=== PATIENT | female | born 1930 | race Caucasian/White ===

== ENCOUNTER 2017-05-17 14:55 | Inpatient (IN) | payer MEDICARE, OTHER ==
[2017-05-17] MEDS: morphine 4 MG/ML VIAL IV (16:05)
[2017-05-17] MEDS: ONDANSETRON 4 MG INJ IV (16:06)
[2017-05-17 16:08] LABS: ADD MAN DIFF? NO
[2017-05-17 16:12] LABS: WHITE BLOOD COUNT 8.8 10^3/ul (4.8-10.8)
[2017-05-17 16:12] LABS: BASOPHIL # 0.1 10^3/ul (0.0-0.1); BASOPHILS % 0.6 % (0.0-2.0); EOSINOPHILS # 0.1 10^3/ul (0.0-0.5); EOSINOPHILS % 0.7 % (0.0-7.0); HEMATOCRIT 42.5 % (37.0-47.0); HEMOGLOBIN 14.9 g/dl (12.0-16.0); LYMPHOCYTES # 1.1 10^3/ul (0.8-2.9); MEAN CORPUSCULAR HEMOGLOBIN 31.6 pg (29.0-33.0); MEAN CORPUSCULAR HGB CONC 35.1 g/dl (32.0-37.0); MEAN CORPUSCULAR VOLUME 90.2 fl (82.0-101.0); MEAN PLATELET VOLUME 9.7 fl (7.4-10.4); MONOCYTE # 0.8 10^3/ul (0.3-0.9); MONOCYTES % 9.1 % (0.0-11.0); NEUTROPHIL # 6.7 10^3/ul (1.6-7.5); NEUTROPHILS % 76.4 % (39.0-77.0); PLATELET COUNT 176 10^3/UL (140-415); RED BLOOD COUNT 4.71 10^6/ul (4.20-5.40); RED CELL DISTRIBUTION WIDTH 12.5 % (11.5-14.5)
[2017-05-17 16:33] LABS: ALANINE AMINOTRANSFERASE 26 IU/L (13-69); ALBUMIN 4.3 g/dl (3.3-4.9); ALBUMIN/GLOBULIN RATIO 1.43; ALKALINE PHOSPHATASE 68 IU/L (42-121); ANION GAP 17 (8-16); ASPARTATE AMINO TRANSFERASE 43 IU/L (15-46); BILIRUBIN,INDIRECT 1.1 mg/dl (0-1.1); BILIRUBIN,TOTAL 1.1 mg/dl (0.2-1.3); BLOOD UREA NITROGEN 29 mg/dl (7-20); CARBON DIOXIDE 22 mmol/L (21-31); CHLORIDE 108 mmol/L (97-110); CREATININE 0.88 mg/dl (0.44-1.00); GLUCOSE 88 mg/dl (70-220); SODIUM 143 mmol/L (135-144); TOTAL PROTEIN 7.3 g/dl (6.1-8.1)
[2017-05-17] MEDS: SOD CHLORIDE 0.9% 500 ML IV (17:32)
[2017-05-17 17:55] LABS: ADD UMIC YES; UR ASCORBIC ACID NEGATIVE (NEGATIVE); UR BILIRUBIN (Dip) NEGATIVE (NEGATIVE); UR BLOOD (Dip) NEGATIVE (NEGATIVE); UR CLARITY CLEAR (CLEAR); UR COLOR YELLOW (YELLOW); UR GLUCOSE (Dip) NEGATIVE (NEGATIVE); UR KETONES (Dip) TRACE mg/dL (NEGATIVE); UR LEUKOCYTE ESTERASE (Dip) TRACE Leu/ul (NEGATIVE); UR NITRITE (Dip) NEGATIVE (NEGATIVE); UR RBC 1 /HPF (0-5); UR SPECIFIC GRAVITY (Dip) 1.015 (1.003-1.030); UR TOTAL PROTEIN (Dip) NEGATIVE (NEGATIVE); UR UROBILINOGEN (Dip) NEGATIVE (NEGATIVE); UR WBC 3 /HPF (0-5)
[2017-05-17] MEDS ORDERED: ONDANSETRON 4 MG INJ IV ×2 (18:00→23:00)
[2017-05-17] MEDS ORDERED: ACETAMINOPHEN 325 MG TAB PO (18:00)
[2017-05-17] MEDS ORDERED: morphine 2 MG INJ IV (23:00)
[2017-05-18] MEDS: PANTOPRAZOLE (EC) 40 MG TAB PO (05:26)
[2017-05-18] MEDS: LIDOCAINE 5% PATCH TD (11:07)
[2017-05-19] MEDS: PANTOPRAZOLE (EC) 40 MG TAB PO (05:50)
[2017-05-19] MEDS: LIDOCAINE 5% PATCH TD (08:48)
[2017-05-19] MEDS: VALSARTAN 80 MG TAB PO ×3 (08:48→20:34)
[2017-05-19] MEDS: HYDROCHLOROTHIAZIDE 25 MG TAB PO ×2 (08:49→09:14)
[2017-05-19] MEDS: AMLODIPINE 10 MG TAB GTB ×2 (08:49→09:00)
[2017-05-19] MEDS: CHOLECALCIFEROL 2,000 UNIT CAP PO (12:45)
[2017-05-19] MEDS: NEBIVOLOL 5 MG TAB PO (20:34)
[2017-05-19] MEDS: NIFEdipine (XL) 30 MG TAB PO (20:35)
[2017-05-20] MEDS: PANTOPRAZOLE (EC) 40 MG TAB PO (05:37)
[2017-05-20] MEDS: CHOLECALCIFEROL 2,000 UNIT CAP PO (08:44)
[2017-05-20] MEDS: HYDROCHLOROTHIAZIDE 25 MG TAB PO (08:45)
[2017-05-20] MEDS: LIDOCAINE 5% PATCH TD (08:45)
[2017-05-20] MEDS: VALSARTAN 80 MG TAB PO ×2 (08:45→21:15)
[2017-05-20 17:25] LABS: INR 1.01; PROTIME 13.4 Sec (11.9-14.9)
[2017-05-20 17:26] LABS: PARTIAL THROMBOPLASTIN TIME 29.9 Sec (25.0-35.0)
[2017-05-20] MEDS: NIFEdipine (XL) 30 MG TAB PO (21:00)
[2017-05-20] MEDS: NEBIVOLOL 5 MG TAB PO (21:16)
[2017-05-21 06:02] LABS: ADD MAN DIFF? NO
[2017-05-21 06:13] LABS: BASOPHILS % 0.4 % (0.0-2.0); EOSINOPHILS # 0.4 10^3/ul (0.0-0.5); EOSINOPHILS % 5.4 % (0.0-7.0); HEMATOCRIT 37.6 % (37.0-47.0); HEMOGLOBIN 12.9 g/dl (12.0-16.0); LYMPHOCYTES # 1.8 10^3/ul (0.8-2.9); LYMPHOCYTES % 24.9 % (15.0-51.0); MEAN CORPUSCULAR HEMOGLOBIN 31.4 pg (29.0-33.0); MEAN CORPUSCULAR HGB CONC 34.3 g/dl (32.0-37.0); MEAN CORPUSCULAR VOLUME 91.5 fl (82.0-101.0); MEAN PLATELET VOLUME 9.5 fl (7.4-10.4); MONOCYTE # 0.8 10^3/ul (0.3-0.9); MONOCYTES % 10.2 % (0.0-11.0); NEUTROPHIL # 4.3 10^3/ul (1.6-7.5); NEUTROPHILS % 58.6 % (39.0-77.0); PLATELET COUNT 192 10^3/UL (140-415); RED BLOOD COUNT 4.11 10^6/ul (4.20-5.40); RED CELL DISTRIBUTION WIDTH 12.4 % (11.5-14.5)
[2017-05-21 06:13] LABS: WHITE BLOOD COUNT 7.4 10^3/ul (4.8-10.8)
[2017-05-21] MEDS: PANTOPRAZOLE (EC) 40 MG TAB PO (06:25)
[2017-05-21 06:47] LABS: ALANINE AMINOTRANSFERASE 21 IU/L (13-69); ALBUMIN 3.7 g/dl (3.3-4.9); ALBUMIN/GLOBULIN RATIO 1.42; ALKALINE PHOSPHATASE 62 IU/L (42-121); ANION GAP 15 (8-16); ASPARTATE AMINO TRANSFERASE 17 IU/L (15-46); BILIRUBIN,INDIRECT 0.2 mg/dl (0-1.1); BILIRUBIN,TOTAL 0.2 mg/dl (0.2-1.3); BLOOD UREA NITROGEN 28 mg/dl (7-20); CALCIUM 9.6 mg/dl (8.4-10.2); CARBON DIOXIDE 28 mmol/L (21-31); CHLORIDE 106 mmol/L (97-110); GLUCOSE 97 mg/dl (70-220); SODIUM 145 mmol/L (135-144); TOTAL PROTEIN 6.3 g/dl (6.1-8.1)
[2017-05-21 06:54] LABS: IRON 50 ug/dl (35-150)
[2017-05-21 07:03] LABS: % IRON SATURATION 18 % SAT (22-52); TOTAL IRON BINDING CAPACITY 274 ug/dl (241-421)
[2017-05-21] MEDS: CHOLECALCIFEROL 2,000 UNIT CAP PO (08:28)
[2017-05-21] MEDS: VALSARTAN 80 MG TAB PO ×2 (08:29→21:07)
[2017-05-21] MEDS: LIDOCAINE 5% PATCH TD (08:29)
[2017-05-21] MEDS: HYDROCHLOROTHIAZIDE 25 MG TAB PO (08:29)
[2017-05-21] MEDS: NEOMYC/POLYMYX/BACIT 30 GM OINT TOP ×2 (16:33→23:15)
[2017-05-21] MEDS: NEBIVOLOL 5 MG TAB PO (21:08)
[2017-05-22] MEDS: PANTOPRAZOLE (EC) 40 MG TAB PO (06:16)
[2017-05-22] MEDS: HYDROCHLOROTHIAZIDE 25 MG TAB PO (08:39)
[2017-05-22] MEDS: NEBIVOLOL 5 MG TAB PO (08:39)
[2017-05-22] MEDS: NEOMYC/POLYMYX/BACIT 30 GM OINT TOP (08:39)
[2017-05-22] MEDS: LIDOCAINE 5% PATCH TD (08:39)
[2017-05-22] MEDS: VALSARTAN 80 MG TAB PO (08:40)
[2017-05-22] MEDS: CHOLECALCIFEROL 2,000 UNIT CAP PO (08:40)
== END 2017-05-22 15:39 | DRG 543 ==
LOC: E/R 14:55 → PP2 17:53
DX: M80.88XA Other osteoporosis with current pathological fracture, vertebra(e), initial encounter for fracture (principal); I50.30 Unspecified diastolic (congestive) heart failure; J90 Pleural effusion, not elsewhere classified; I11.0 Hypertensive heart disease with heart failure; D63.8 Anemia in other chronic diseases classified elsewhere; K59.00 Constipation, unspecified; Z85.89 Personal history of malignant neoplasm of other organs and systems; M47.896 Other spondylosis, lumbar region
CPT/HCPCS: 72131; 72157; 72158; 76604; 80053; 81001; 82728; 83540; 83735; 85025; 85610; 85730; 96374; 96375; 97162; 99285-25

== ENCOUNTER 2017-05-22 16:25 | Inpatient (IN) | payer MEDICARE, OTHER ==
[2017-05-22] MEDS ORDERED: morphine 2 MG INJ IV (20:25)
[2017-05-22] MEDS ORDERED: ONDANSETRON 4 MG INJ IV (20:25)
[2017-05-22 21:22] LABS: ADD UMIC YES; UR ASCORBIC ACID NEGATIVE (NEGATIVE); UR BILIRUBIN (Dip) NEGATIVE (NEGATIVE); UR BLOOD (Dip) NEGATIVE (NEGATIVE); UR CLARITY CLEAR (CLEAR); UR COLOR YELLOW (YELLOW); UR GLUCOSE (Dip) NEGATIVE (NEGATIVE); UR KETONES (Dip) NEGATIVE (NEGATIVE); UR LEUKOCYTE ESTERASE (Dip) 1+ Leu/ul (NEGATIVE); UR MUCUS FEW /HPF (NONE SEEN); UR NITRITE (Dip) NEGATIVE (NEGATIVE); UR RBC 0 /HPF (0-5); UR SPECIFIC GRAVITY (Dip) 1.016 (1.003-1.030); UR SQUAMOUS EPITHELIAL CELL FEW /HPF (FEW); UR TOTAL PROTEIN (Dip) NEGATIVE (NEGATIVE); UR UROBILINOGEN (Dip) NEGATIVE (NEGATIVE); UR WBC 12 /HPF (0-5)
[2017-05-22] MEDS: NEBIVOLOL 5 MG TAB PO (22:13)
[2017-05-22] MEDS: VALSARTAN 80 MG TAB PO (22:13)
[2017-05-22] MEDS: NEOMYC/POLYMYX/BACIT 30 GM OINT TOP (22:14)
[2017-05-23] MEDS ORDERED: BISACODYL 10 MG SUPP PR (00:30)
[2017-05-23] MEDS ORDERED: MAGNESIUM HYDROXIDE 30ML CUP PO (00:30)
[2017-05-23] MEDS ORDERED: LACTULOSE 30ML CUP PO (00:30)
[2017-05-23] MEDS: PANTOPRAZOLE (EC) 40 MG TAB PO (06:47)
[2017-05-23 07:51] LABS: ADD MAN DIFF? NO
[2017-05-23 07:56] LABS: BASOPHIL # 0.1 10^3/ul (0.0-0.1); BASOPHILS % 0.8 % (0.0-2.0); EOSINOPHILS # 0.4 10^3/ul (0.0-0.5); EOSINOPHILS % 4.6 % (0.0-7.0); HEMATOCRIT 39.9 % (37.0-47.0); HEMOGLOBIN 13.7 g/dl (12.0-16.0); LYMPHOCYTES % 24.2 % (15.0-51.0); MEAN CORPUSCULAR HEMOGLOBIN 31.1 pg (29.0-33.0); MEAN CORPUSCULAR HGB CONC 34.3 g/dl (32.0-37.0); MEAN CORPUSCULAR VOLUME 90.7 fl (82.0-101.0); MONOCYTE # 0.7 10^3/ul (0.3-0.9); MONOCYTES % 8.5 % (0.0-11.0); NEUTROPHIL # 5.1 10^3/ul (1.6-7.5); NEUTROPHILS % 61.7 % (39.0-77.0); PLATELET COUNT 208 10^3/UL (140-415); RED CELL DISTRIBUTION WIDTH 12.4 % (11.5-14.5)
[2017-05-23 07:56] LABS: WHITE BLOOD COUNT 8.3 10^3/ul (4.8-10.8)
[2017-05-23 08:18] LABS: ALANINE AMINOTRANSFERASE 22 IU/L (13-69); ALBUMIN 3.6 g/dl (3.3-4.9); ALKALINE PHOSPHATASE 73 IU/L (42-121); ANION GAP 17 (8-16); ASPARTATE AMINO TRANSFERASE 19 IU/L (15-46); BILIRUBIN,INDIRECT 0.3 mg/dl (0-1.1); BILIRUBIN,TOTAL 0.3 mg/dl (0.2-1.3); BLOOD UREA NITROGEN 36 mg/dl (7-20); CALCIUM 10.9 mg/dl (8.4-10.2); CARBON DIOXIDE 27 mmol/L (21-31); CHLORIDE 106 mmol/L (97-110); CREATININE 1.14 mg/dl (0.44-1.00); GLUCOSE 94 mg/dl (70-220); POTASSIUM 4.1 mmol/L (3.5-5.1); SODIUM 146 mmol/L (135-144); TOTAL PROTEIN 6.6 g/dl (6.1-8.1)
[2017-05-23] MEDS: DOCUSATE SODIUM 100 MG CAP PO ×2 (08:47→20:21)
[2017-05-23] MEDS: CHOLECALCIFEROL 2,000 UNIT CAP PO (08:47)
[2017-05-23] MEDS: NEBIVOLOL 5 MG TAB PO ×2 (08:47→20:21)
[2017-05-23] MEDS: LIDOCAINE 5% PATCH TD (08:48)
[2017-05-23] MEDS: HYDROCHLOROTHIAZIDE 25 MG TAB PO (08:48)
[2017-05-23] MEDS: VALSARTAN 80 MG TAB PO ×2 (08:48→20:21)
[2017-05-23] MEDS: ACETAMINOPHEN 325 MG TAB PO (08:50)
[2017-05-23] MEDS: NEOMYC/POLYMYX/BACIT 30 GM OINT TOP ×2 (09:00→20:21)
[2017-05-23] MEDS: SENNA TAB PO (20:21)
[2017-05-24] MEDS: PANTOPRAZOLE (EC) 40 MG TAB PO (06:30)
[2017-05-24] MEDS: DOCUSATE SODIUM 100 MG CAP PO ×2 (09:54→21:00)
[2017-05-24] MEDS: LIDOCAINE 5% PATCH TD (09:54)
[2017-05-24] MEDS: NEBIVOLOL 5 MG TAB PO ×2 (09:54→21:00)
[2017-05-24] MEDS: CHOLECALCIFEROL 2,000 UNIT CAP PO (10:00)
[2017-05-24] MEDS: VALSARTAN 80 MG TAB PO ×2 (10:00→21:00)
[2017-05-24] MEDS: HYDROCHLOROTHIAZIDE 25 MG TAB PO (10:00)
[2017-05-24] MEDS: NEOMYC/POLYMYX/BACIT 30 GM OINT TOP ×2 (10:00→21:11)
[2017-05-24] MEDS: ACETAMINOPHEN 325 MG TAB PO (18:46)
[2017-05-24] MEDS: SENNA TAB PO (21:00)
[2017-05-25] MEDS: PANTOPRAZOLE (EC) 40 MG TAB PO (06:26)
[2017-05-25] MEDS: CHOLECALCIFEROL 2,000 UNIT CAP PO (08:32)
[2017-05-25] MEDS: HYDROCHLOROTHIAZIDE 25 MG TAB PO (08:33)
[2017-05-25] MEDS: VALSARTAN 80 MG TAB PO ×2 (08:34→20:06)
[2017-05-25] MEDS: DOCUSATE SODIUM 100 MG CAP PO ×2 (08:34→20:06)
[2017-05-25] MEDS: NEBIVOLOL 5 MG TAB PO ×2 (08:35→20:07)
[2017-05-25] MEDS: LIDOCAINE 5% PATCH TD (08:37)
[2017-05-25] MEDS: NEOMYC/POLYMYX/BACIT 30 GM OINT TOP ×2 (08:39→20:07)
[2017-05-25] MEDS: SENNA TAB PO (20:13)
[2017-05-26] MEDS: PANTOPRAZOLE (EC) 40 MG TAB PO (06:32)
[2017-05-26] MEDS: DOCUSATE SODIUM 100 MG CAP PO ×2 (08:08→21:10)
[2017-05-26] MEDS: NEBIVOLOL 5 MG TAB PO ×2 (08:08→21:11)
[2017-05-26] MEDS: HYDROCHLOROTHIAZIDE 25 MG TAB PO (08:10)
[2017-05-26] MEDS: CHOLECALCIFEROL 2,000 UNIT CAP PO (08:10)
[2017-05-26] MEDS: LIDOCAINE 5% PATCH TD (08:14)
[2017-05-26] MEDS: NEOMYC/POLYMYX/BACIT 30 GM OINT TOP ×2 (08:14→21:00)
[2017-05-26] MEDS: VALSARTAN 80 MG TAB PO ×2 (09:34→21:10)
[2017-05-26] MEDS: SENNA TAB PO (21:10)
[2017-05-27] MEDS: PANTOPRAZOLE (EC) 40 MG TAB PO (06:13)
[2017-05-27] MEDS: HYDROCHLOROTHIAZIDE 25 MG TAB PO (09:12)
[2017-05-27] MEDS: CHOLECALCIFEROL 2,000 UNIT CAP PO (09:13)
[2017-05-27] MEDS: DOCUSATE SODIUM 100 MG CAP PO ×2 (09:13→20:04)
[2017-05-27] MEDS: VALSARTAN 80 MG TAB PO ×2 (09:13→20:04)
[2017-05-27] MEDS: NEBIVOLOL 5 MG TAB PO ×2 (09:13→20:05)
[2017-05-27] MEDS: NEOMYC/POLYMYX/BACIT 30 GM OINT TOP ×2 (09:19→20:05)
[2017-05-27] MEDS: LIDOCAINE 5% PATCH TD (09:19)
[2017-05-27] MEDS: SENNA TAB PO (20:03)
[2017-05-28] MEDS: PANTOPRAZOLE (EC) 40 MG TAB PO (06:28)
[2017-05-28 07:39] LABS: ADD MAN DIFF? NO
[2017-05-28 07:42] LABS: BASOPHIL # 0.1 10^3/ul (0.0-0.1); BASOPHILS % 0.9 % (0.0-2.0); EOSINOPHILS # 0.3 10^3/ul (0.0-0.5); EOSINOPHILS % 4.6 % (0.0-7.0); HEMATOCRIT 37.8 % (37.0-47.0); HEMOGLOBIN 12.8 g/dl (12.0-16.0); LYMPHOCYTES # 1.8 10^3/ul (0.8-2.9); LYMPHOCYTES % 25.6 % (15.0-51.0); MEAN CORPUSCULAR HEMOGLOBIN 30.9 pg (29.0-33.0); MEAN CORPUSCULAR HGB CONC 33.9 g/dl (32.0-37.0); MEAN CORPUSCULAR VOLUME 91.3 fl (82.0-101.0); MEAN PLATELET VOLUME 10.2 fl (7.4-10.4); MONOCYTE # 0.7 10^3/ul (0.3-0.9); MONOCYTES % 10.7 % (0.0-11.0); NEUTROPHILS % 57.9 % (39.0-77.0); PLATELET COUNT 181 10^3/UL (140-415); RED BLOOD COUNT 4.14 10^6/ul (4.20-5.40); RED CELL DISTRIBUTION WIDTH 12.2 % (11.5-14.5)
[2017-05-28 07:42] LABS: WHITE BLOOD COUNT 6.9 10^3/ul (4.8-10.8)
[2017-05-28 08:12] LABS: ALANINE AMINOTRANSFERASE 23 IU/L (13-69); ALBUMIN 3.8 g/dl (3.3-4.9); ALBUMIN/GLOBULIN RATIO 1.46; ALKALINE PHOSPHATASE 72 IU/L (42-121); ANION GAP 14 (8-16); ASPARTATE AMINO TRANSFERASE 18 IU/L (15-46); BILIRUBIN,INDIRECT 0.2 mg/dl (0-1.1); BILIRUBIN,TOTAL 0.2 mg/dl (0.2-1.3); BLOOD UREA NITROGEN 43 mg/dl (7-20); CALCIUM 9.9 mg/dl (8.4-10.2); CARBON DIOXIDE 30 mmol/L (21-31); CHLORIDE 105 mmol/L (97-110); CREATININE 1.31 mg/dl (0.44-1.00); GLUCOSE 90 mg/dl (70-220); POTASSIUM 4.1 mmol/L (3.5-5.1); SODIUM 145 mmol/L (135-144); TOTAL PROTEIN 6.4 g/dl (6.1-8.1)
[2017-05-28] MEDS: DOCUSATE SODIUM 100 MG CAP PO ×2 (08:39→21:27)
[2017-05-28] MEDS: NEBIVOLOL 5 MG TAB PO ×2 (08:39→21:27)
[2017-05-28] MEDS: HYDROCHLOROTHIAZIDE 25 MG TAB PO (08:40)
[2017-05-28] MEDS: CHOLECALCIFEROL 2,000 UNIT CAP PO (08:40)
[2017-05-28] MEDS: NEOMYC/POLYMYX/BACIT 30 GM OINT TOP ×2 (08:42→21:28)
[2017-05-28] MEDS: LIDOCAINE 5% PATCH TD (08:42)
[2017-05-28] MEDS: VALSARTAN 80 MG TAB PO ×2 (08:45→21:27)
[2017-05-28 14:19] LABS: IRON 83 ug/dl (35-150)
[2017-05-28 14:28] LABS: % IRON SATURATION 28 % SAT (22-52); TOTAL IRON BINDING CAPACITY 293 ug/dl (241-421)
[2017-05-28] MEDS: SENNA TAB PO (21:27)
[2017-05-29 06:33] LABS: ADD MAN DIFF? NO
[2017-05-29 06:42] LABS: WHITE BLOOD COUNT 6.5 10^3/ul (4.8-10.8)
[2017-05-29 06:42] LABS: BASOPHILS % 0.5 % (0.0-2.0); EOSINOPHILS # 0.3 10^3/ul (0.0-0.5); EOSINOPHILS % 5.3 % (0.0-7.0); HEMOGLOBIN 12.6 g/dl (12.0-16.0); MEAN CORPUSCULAR HEMOGLOBIN 31.1 pg (29.0-33.0); MEAN CORPUSCULAR HGB CONC 34.1 g/dl (32.0-37.0); MEAN CORPUSCULAR VOLUME 91.4 fl (82.0-101.0); MEAN PLATELET VOLUME 10.3 fl (7.4-10.4); MONOCYTE # 0.6 10^3/ul (0.3-0.9); MONOCYTES % 9.8 % (0.0-11.0); NEUTROPHIL # 3.4 10^3/ul (1.6-7.5); NEUTROPHILS % 53.1 % (39.0-77.0); PLATELET COUNT 178 10^3/UL (140-415); RED BLOOD COUNT 4.05 10^6/ul (4.20-5.40); RED CELL DISTRIBUTION WIDTH 12.1 % (11.5-14.5)
[2017-05-29] MEDS: PANTOPRAZOLE (EC) 40 MG TAB PO (06:42)
[2017-05-29 06:58] LABS: ALANINE AMINOTRANSFERASE 21 IU/L (13-69); ALBUMIN 3.7 g/dl (3.3-4.9); ALBUMIN/GLOBULIN RATIO 1.37; ALKALINE PHOSPHATASE 74 IU/L (42-121); ANION GAP 13 (8-16); ASPARTATE AMINO TRANSFERASE 18 IU/L (15-46); BILIRUBIN,INDIRECT 0.1 mg/dl (0-1.1); BILIRUBIN,TOTAL 0.1 mg/dl (0.2-1.3); BLOOD UREA NITROGEN 45 mg/dl (7-20); CARBON DIOXIDE 30 mmol/L (21-31); CHLORIDE 106 mmol/L (97-110); CREATININE 1.27 mg/dl (0.44-1.00); GLUCOSE 92 mg/dl (70-220); MAGNESIUM 1.9 mg/dl (1.7-2.5); SODIUM 145 mmol/L (135-144); TOTAL PROTEIN 6.4 g/dl (6.1-8.1)
[2017-05-29] MEDS: CHOLECALCIFEROL 2,000 UNIT CAP PO (09:00)
[2017-05-29] MEDS: DOCUSATE SODIUM 100 MG CAP PO ×2 (09:00→21:18)
[2017-05-29] MEDS: VALSARTAN 80 MG TAB PO ×2 (09:01→21:00)
[2017-05-29] MEDS: NEBIVOLOL 5 MG TAB PO ×3 (09:02→21:19)
[2017-05-29] MEDS: HYDROCHLOROTHIAZIDE 25 MG TAB PO (09:02)
[2017-05-29] MEDS: NEOMYC/POLYMYX/BACIT 30 GM OINT TOP ×2 (09:03→21:19)
[2017-05-29] MEDS: LIDOCAINE 5% PATCH TD (09:03)
[2017-05-29] MEDS: ERGOCALCIFEROL 50,000 UNIT CAP PO (17:52)
[2017-05-29] MEDS: SENNA TAB PO (21:00)
[2017-05-30] MEDS: PANTOPRAZOLE (EC) 40 MG TAB PO (06:00)
[2017-05-30] MEDS: NEOMYC/POLYMYX/BACIT 30 GM OINT TOP ×2 (09:00→21:00)
[2017-05-30] MEDS: CHOLECALCIFEROL 2,000 UNIT CAP PO (09:00)
[2017-05-30] MEDS: LIDOCAINE 5% PATCH TD (09:11)
[2017-05-30] MEDS: VALSARTAN 80 MG TAB PO ×2 (09:11→21:00)
[2017-05-30] MEDS: NEBIVOLOL 5 MG TAB PO ×2 (09:12→21:34)
[2017-05-30] MEDS: DOCUSATE SODIUM 100 MG CAP PO ×2 (09:12→21:00)
[2017-05-30] MEDS: HYDROCHLOROTHIAZIDE 25 MG TAB PO (09:12)
[2017-05-30] MEDS: SENNA TAB PO (21:00)
[2017-05-31] MEDS: PANTOPRAZOLE (EC) 40 MG TAB PO (06:31)
[2017-05-31] MEDS: NEBIVOLOL 5 MG TAB PO ×2 (09:57→21:46)
[2017-05-31] MEDS: DOCUSATE SODIUM 100 MG CAP PO ×2 (09:57→21:47)
[2017-05-31] MEDS: HYDROCHLOROTHIAZIDE 25 MG TAB PO (09:58)
[2017-05-31] MEDS: VALSARTAN 80 MG TAB PO ×2 (09:58→21:00)
[2017-05-31] MEDS: CHOLECALCIFEROL 2,000 UNIT CAP PO (09:58)
[2017-05-31] MEDS: LIDOCAINE 5% PATCH TD (10:09)
[2017-05-31] MEDS: NEOMYC/POLYMYX/BACIT 30 GM OINT TOP (21:00)
[2017-05-31] MEDS: SENNA TAB PO (21:47)
[2017-06-01] MEDS: PANTOPRAZOLE (EC) 40 MG TAB PO (06:00)
[2017-06-01] MEDS: CHOLECALCIFEROL 2,000 UNIT CAP PO (08:59)
[2017-06-01] MEDS: LIDOCAINE 5% PATCH TD (08:59)
[2017-06-01] MEDS: DOCUSATE SODIUM 100 MG CAP PO ×2 (08:59→20:34)
[2017-06-01] MEDS: HYDROCHLOROTHIAZIDE 25 MG TAB PO (09:00)
[2017-06-01] MEDS: NEBIVOLOL 5 MG TAB PO ×2 (09:00→20:36)
[2017-06-01] MEDS: NEOMYC/POLYMYX/BACIT 30 GM OINT TOP ×2 (09:00→20:36)
[2017-06-01] MEDS: VALSARTAN 80 MG TAB PO ×3 (09:00→20:39)
[2017-06-01] MEDS: SENNA TAB PO (20:34)
[2017-06-02] MEDS: PANTOPRAZOLE (EC) 40 MG TAB PO (06:00)
[2017-06-02] MEDS: DOCUSATE SODIUM 100 MG CAP PO ×2 (08:44→21:00)
[2017-06-02] MEDS: NEBIVOLOL 5 MG TAB PO ×2 (08:44→21:03)
[2017-06-02] MEDS: VALSARTAN 80 MG TAB PO ×2 (08:44→21:00)
[2017-06-02] MEDS: LIDOCAINE 5% PATCH TD (08:45)
[2017-06-02] MEDS: CHOLECALCIFEROL 2,000 UNIT CAP PO (08:45)
[2017-06-02] MEDS: HYDROCHLOROTHIAZIDE 25 MG TAB PO (08:45)
[2017-06-02] MEDS: NEOMYC/POLYMYX/BACIT 30 GM OINT TOP ×2 (08:46→21:07)
[2017-06-02] MEDS: SENNA TAB PO (21:00)
[2017-06-03] MEDS: PANTOPRAZOLE (EC) 40 MG TAB PO (06:04)
[2017-06-03] MEDS: DOCUSATE SODIUM 100 MG CAP PO ×2 (09:29→20:06)
[2017-06-03] MEDS: NEBIVOLOL 5 MG TAB PO ×2 (09:29→20:08)
[2017-06-03] MEDS: HYDROCHLOROTHIAZIDE 25 MG TAB PO (09:29)
[2017-06-03] MEDS: CHOLECALCIFEROL 2,000 UNIT CAP PO (09:29)
[2017-06-03] MEDS: VALSARTAN 80 MG TAB PO ×2 (09:30→20:08)
[2017-06-03] MEDS: LIDOCAINE 5% PATCH TD (09:30)
[2017-06-03] MEDS: NEOMYC/POLYMYX/BACIT 30 GM OINT TOP ×2 (09:30→20:10)
[2017-06-03] MEDS: SENNA TAB PO (20:06)
[2017-06-04] MEDS: PANTOPRAZOLE (EC) 40 MG TAB PO (06:38)
[2017-06-04] MEDS: LIDOCAINE 5% PATCH TD (08:42)
[2017-06-04] MEDS: CHOLECALCIFEROL 2,000 UNIT CAP PO (08:42)
[2017-06-04] MEDS: NEOMYC/POLYMYX/BACIT 30 GM OINT TOP (08:42)
[2017-06-04] MEDS: HYDROCHLOROTHIAZIDE 25 MG TAB PO (08:42)
[2017-06-04] MEDS: DOCUSATE SODIUM 100 MG CAP PO (08:43)
[2017-06-04] MEDS: NEBIVOLOL 5 MG TAB PO (08:43)
[2017-06-04] MEDS: VALSARTAN 80 MG TAB PO (08:44)
[2017-06-04] MEDS: ZOLEDRONIC ACID 4 MG in SOD CHLORIDE 0.9% 100 ML IVPB (11:35)
== END 2017-06-04 16:30 | DRG 560 ==
LOC: VRC 05-29 16:34
PROC: F07Z5ZZ Bed Mobility Treatment (ICD-10-PCS; principal; 2017-05-23)
PROC: F07Z8ZZ Transfer Training Treatment (ICD-10-PCS; 2017-05-23)
PROC: F07Z9ZZ Gait Training/Functional Ambulation Treatment (ICD-10-PCS; 2017-05-23)
PROC: F08Z2ZZ Grooming/Personal Hygiene Treatment (ICD-10-PCS; 2017-05-23)
PROC: F08Z1ZZ Dressing Techniques Treatment (ICD-10-PCS; 2017-05-23)
PROC: F08Z0ZZ Bathing/Showering Techniques Treatment (ICD-10-PCS; 2017-05-23)
DX: S22.089D Unspecified fracture of T11-T12 vertebra, subsequent encounter for fracture with routine healing (principal); I11.0 Hypertensive heart disease with heart failure; I50.32 Chronic diastolic (congestive) heart failure; W19.XXXD Unspecified fall, subsequent encounter; K21.9 Gastro-esophageal reflux disease without esophagitis; I25.10 Atherosclerotic heart disease of native coronary artery without angina pectoris; I73.9 Peripheral vascular disease, unspecified; K59.00 Constipation, unspecified; R41.0 Disorientation, unspecified; D63.8 Anemia in other chronic diseases classified elsewhere; R52 Pain, unspecified; Z85.118 Personal history of other malignant neoplasm of bronchus and lung; Z74.09 Other reduced mobility; Z96.651 Presence of right artificial knee joint
CPT/HCPCS: 70450; 71110; 78306; 80053; 81001; 83540; 83735; 85025; 87081; 87086; 93306; 97110; 97112; 97116; 97150; 97163; 97167; 97530; 97535; A9503; J3487

== ENCOUNTER 2017-10-31 09:29 | Inpatient (IN) | payer MEDICARE, OTHER ==
[2017-10-31 10:29] LABS: ADD MAN DIFF? NO
[2017-10-31] MEDS ORDERED: ACETAMINOPHEN 325 MG TAB PO (10:30)
[2017-10-31] MEDS ORDERED: ONDANSETRON 4 MG INJ IV (10:30)
[2017-10-31 10:31] LABS: BASOPHILS % 0.5 % (0.0-2.0); EOSINOPHILS # 0.1 10^3/ul (0.0-0.5); EOSINOPHILS % 1.7 % (0.0-7.0); HEMATOCRIT 38.8 % (37.0-47.0); HEMOGLOBIN 13.3 g/dl (12.0-16.0); LYMPHOCYTES # 1.2 10^3/ul (0.8-2.9); LYMPHOCYTES % 18.8 % (15.0-51.0); MEAN CORPUSCULAR HEMOGLOBIN 30.7 pg (29.0-33.0); MEAN CORPUSCULAR HGB CONC 34.3 g/dl (32.0-37.0); MEAN CORPUSCULAR VOLUME 89.6 fl (82.0-101.0); MEAN PLATELET VOLUME 9.4 fl (7.4-10.4); MONOCYTE # 0.6 10^3/ul (0.3-0.9); MONOCYTES % 9.3 % (0.0-11.0); NEUTROPHIL # 4.5 10^3/ul (1.6-7.5); NEUTROPHILS % 69.4 % (39.0-77.0); PLATELET COUNT 184 10^3/UL (140-415); RED BLOOD COUNT 4.33 10^6/ul (4.20-5.40); RED CELL DISTRIBUTION WIDTH 13.6 % (11.5-14.5)
[2017-10-31 10:31] LABS: WHITE BLOOD COUNT 6.4 10^3/ul (4.8-10.8)
[2017-10-31 10:50] LABS: INR 1.08; PROTIME 14.1 Sec (11.9-14.9); PT RATIO 1.1
[2017-10-31 10:51] LABS: PARTIAL THROMBOPLASTIN TIME 27.4 Sec (25.0-35.0)
[2017-10-31 10:53] LABS: ANION GAP 10 (8-16); BLOOD UREA NITROGEN 15 mg/dl (7-20); CALCIUM 8.8 mg/dl (8.4-10.2); CARBON DIOXIDE 28 mmol/L (21-31); CHLORIDE 108 mmol/L (97-110); CREATININE 0.81 mg/dl (0.44-1.00); GLUCOSE 89 mg/dl (70-220); POTASSIUM 3.1 mmol/L (3.5-5.1); SODIUM 143 mmol/L (135-144)
[2017-10-31] MEDS: POTASSIUM CHLORIDE (SR) 20 MEQ TAB PO (11:06)
[2017-10-31] MEDS: SOD CHLORIDE 0.9% 1,000 ML IV (12:20)
[2017-10-31 16:34] LABS: IRON 56 ug/dl (35-150)
[2017-10-31 16:35] LABS: MAGNESIUM 1.8 mg/dl (1.7-2.5)
[2017-10-31 16:43] LABS: % IRON SATURATION 20 % SAT (22-52); TOTAL IRON BINDING CAPACITY 275 ug/dl (241-421)
[2017-11-01 05:40] LABS: ADD MAN DIFF? NO
[2017-11-01 05:45] LABS: WHITE BLOOD COUNT 7.7 10^3/ul (4.8-10.8)
[2017-11-01 05:45] LABS: BASOPHILS % 0.4 % (0.0-2.0); EOSINOPHILS # 0.1 10^3/ul (0.0-0.5); EOSINOPHILS % 1.6 % (0.0-7.0); HEMATOCRIT 36.9 % (37.0-47.0); HEMOGLOBIN 12.4 g/dl (12.0-16.0); LYMPHOCYTES # 1.7 10^3/ul (0.8-2.9); LYMPHOCYTES % 21.8 % (15.0-51.0); MEAN CORPUSCULAR HEMOGLOBIN 30.4 pg (29.0-33.0); MEAN CORPUSCULAR HGB CONC 33.6 g/dl (32.0-37.0); MEAN CORPUSCULAR VOLUME 90.4 fl (82.0-101.0); MONOCYTE # 0.8 10^3/ul (0.3-0.9); MONOCYTES % 9.9 % (0.0-11.0); NEUTROPHIL # 5.1 10^3/ul (1.6-7.5); NEUTROPHILS % 65.9 % (39.0-77.0); PLATELET COUNT 186 10^3/UL (140-415); RED BLOOD COUNT 4.08 10^6/ul (4.20-5.40); RED CELL DISTRIBUTION WIDTH 13.6 % (11.5-14.5)
[2017-11-01] MEDS: SOD CHLORIDE 0.9% 1,000 ML IV (06:08)
[2017-11-01 06:16] LABS: ANION GAP 12 (8-16); BLOOD UREA NITROGEN 16 mg/dl (7-20); CALCIUM 8.4 mg/dl (8.4-10.2); CARBON DIOXIDE 25 mmol/L (21-31); CHLORIDE 110 mmol/L (97-110); CREATININE 0.75 mg/dl (0.44-1.00); GLUCOSE 86 mg/dl (70-220); MAGNESIUM 1.9 mg/dl (1.7-2.5); POTASSIUM 3.2 mmol/L (3.5-5.1); SODIUM 144 mmol/L (135-144)
[2017-11-01] MEDS: POTASSIUM CHLORIDE (SR) 20 MEQ TAB PO ×2 (09:52→12:19)
[2017-11-01] MEDS: MAGNESIUM SULFATE 2 GM/50 ML 50 ML IVPB (09:52)
[2017-11-01] MEDS: CLONIDINE 0.2 MG/24 HR PATCH TRANSDERM (12:18)
[2017-11-01] MEDS: AMLODIPINE 5 MG TAB PO (12:18)
== END 2017-11-01 14:58 | disposition home health service (06) | DRG 187 ==
LOC: E/R 09:29 → 2NE 10:16
PROC: 0W9B3ZZ Drainage of Left Pleural Cavity, Percutaneous Approach (ICD-10-PCS; principal; 2017-10-31)
DX: J90 Pleural effusion, not elsewhere classified (principal); C34.90 Malignant neoplasm of unspecified part of unspecified bronchus or lung; E87.6 Hypokalemia; I10 Essential (primary) hypertension; I51.7 Cardiomegaly
CPT/HCPCS: 36415; 71045; 76604; 77012; 80048; 83540; 83735; 84443; 85025; 85610; 85730; 93005; 99285-25

== ENCOUNTER 2017-12-23 09:29 | Observation (INO) | payer MEDICARE, OTHER ==
[2017-12-23] MEDS: SOD CHLORIDE 0.9% 1,000 ML IV ×2 (10:33→13:30)
[2017-12-23] MEDS: ALBUTEROL 0.083% (NEB) 2.5 MG/3 ML AMP NEB (10:45)
[2017-12-23] MEDS: IPRATROPIUM (NEB) 0.5 MG/2.5 ML AMP NEB (10:45)
[2017-12-23 10:58] LABS: ADD MAN DIFF? NO
[2017-12-23] MEDS ORDERED: MECLIZINE 12.5 MG TAB PO (11:00)
[2017-12-23 11:05] LABS: BASOPHILS % 0.4 % (0.0-2.0); EOSINOPHILS # 0.1 10^3/ul (0.0-0.5); EOSINOPHILS % 0.8 % (0.0-7.0); HEMATOCRIT 41.1 % (37.0-47.0); LYMPHOCYTES # 1.5 10^3/ul (0.8-2.9); LYMPHOCYTES % 18.8 % (15.0-51.0); MEAN CORPUSCULAR HEMOGLOBIN 30.5 pg (29.0-33.0); MEAN CORPUSCULAR HGB CONC 34.1 g/dl (32.0-37.0); MEAN CORPUSCULAR VOLUME 89.5 fl (82.0-101.0); MEAN PLATELET VOLUME 10.2 fl (7.4-10.4); MONOCYTE # 0.6 10^3/ul (0.3-0.9); MONOCYTES % 7.8 % (0.0-11.0); NEUTROPHIL # 5.7 10^3/ul (1.6-7.5); NEUTROPHILS % 71.7 % (39.0-77.0); PLATELET COUNT 194 10^3/UL (140-415); RED BLOOD COUNT 4.59 10^6/ul (4.20-5.40); RED CELL DISTRIBUTION WIDTH 14.5 % (11.5-14.5)
[2017-12-23 11:21] LABS: ALANINE AMINOTRANSFERASE 29 IU/L (13-69); ALBUMIN 3.4 g/dl (3.3-4.9); ALBUMIN/GLOBULIN RATIO 1.36; ALKALINE PHOSPHATASE 88 IU/L (42-121); ANION GAP 8 (5-13); ASPARTATE AMINO TRANSFERASE 35 IU/L (15-46); BILIRUBIN,INDIRECT 0.6 mg/dl (0-1.1); BILIRUBIN,TOTAL 0.6 mg/dl (0.2-1.3); BLOOD UREA NITROGEN 23 mg/dl (7-20); CALCIUM 8.6 mg/dl (8.4-10.2); CARBON DIOXIDE 25 mmol/L (21-31); CHLORIDE 108 mmol/L (97-110); CREATININE 0.78 mg/dl (0.44-1.00); GLUCOSE 91 mg/dl (70-220); POTASSIUM 3.8 mmol/L (3.5-5.1); SODIUM 141 mmol/L (135-144); TOTAL PROTEIN 5.9 g/dl (6.1-8.1)
[2017-12-23 11:22] LABS: INR 1.11; PARTIAL THROMBOPLASTIN TIME 29.4 Sec (23.0-35.0); PROTIME 14.5 Sec (11.9-14.9); PT RATIO 1.1
[2017-12-23 11:32] LABS: B-TYPE NATRIURETIC PEPTIDE 610 PG/ML (0-450); TROPONIN-I < 0.012 ng/ml (0.000-0.120)
[2017-12-23] MEDS ORDERED: ONDANSETRON (ODT) 4 MG TAB ODT (11:38)
[2017-12-23] MEDS: ERGOCALCIFEROL 50,000 UNIT CAP PO (16:00)
[2017-12-23] MEDS: ATORVASTATIN 40 MG TAB PO (21:21)
[2017-12-23] MEDS: DRONABINOL 2.5 MG CAP PO (21:21)
[2017-12-24 05:35] LABS: ADD MAN DIFF? NO
[2017-12-24 05:38] LABS: BASOPHILS % 0.4 % (0.0-2.0); EOSINOPHILS # 0.1 10^3/ul (0.0-0.5); EOSINOPHILS % 1.8 % (0.0-7.0); HEMATOCRIT 34.6 % (37.0-47.0); HEMOGLOBIN 11.5 g/dl (12.0-16.0); LYMPHOCYTES # 1.1 10^3/ul (0.8-2.9); LYMPHOCYTES % 20.1 % (15.0-51.0); MEAN CORPUSCULAR HEMOGLOBIN 29.9 pg (29.0-33.0); MEAN CORPUSCULAR HGB CONC 33.2 g/dl (32.0-37.0); MEAN CORPUSCULAR VOLUME 90.1 fl (82.0-101.0); MEAN PLATELET VOLUME 10.3 fl (7.4-10.4); MONOCYTE # 0.7 10^3/ul (0.3-0.9); MONOCYTES % 11.5 % (0.0-11.0); NEUTROPHIL # 3.7 10^3/ul (1.6-7.5); NEUTROPHILS % 65.8 % (39.0-77.0); PLATELET COUNT 148 10^3/UL (140-415); RED BLOOD COUNT 3.84 10^6/ul (4.20-5.40); RED CELL DISTRIBUTION WIDTH 14.3 % (11.5-14.5)
[2017-12-24 05:38] LABS: WHITE BLOOD COUNT 5.7 10^3/ul (4.8-10.8)
[2017-12-24 06:06] LABS: ANION GAP 7 (5-13); BLOOD UREA NITROGEN 23 mg/dl (7-20); CARBON DIOXIDE 24 mmol/L (21-31); CHLORIDE 112 mmol/L (97-110); CREATININE 0.75 mg/dl (0.44-1.00); GLUCOSE 96 mg/dl (70-220); SODIUM 143 mmol/L (135-144)
[2017-12-24] MEDS: MEMANTINE 10 MG TAB PO (08:38)
[2017-12-24] MEDS: NEBIVOLOL 5 MG TAB PO (08:38)
[2017-12-24] MEDS: ESCITALOPRAM 10 MG TAB PO (08:38)
[2017-12-24] MEDS: DRONABINOL 2.5 MG CAP PO ×2 (09:30→20:07)
[2017-12-24] MEDS: POTASSIUM CHLORIDE (SR) 20 MEQ TAB PO (09:30)
[2017-12-24] MEDS: PANTOPRAZOLE (EC) 40 MG TAB PO (09:39)
[2017-12-24 10:29] LABS: MAGNESIUM 1.7 mg/dl (1.7-2.5)
[2017-12-24] MEDS: POTASSIUM CHLORIDE 50 ML IVPB ×4 (12:45→17:32)
[2017-12-24 20:05] LABS: POTASSIUM 4.3 mmol/L (3.5-5.1)
[2017-12-24] MEDS: ATORVASTATIN 40 MG TAB PO (20:07)
== END 2017-12-24 21:35 | disposition home or self-care (01) ==
LOC: E/R 09:29 → 2NE 10:38
DX: J90 Pleural effusion, not elsewhere classified (principal); I10 Essential (primary) hypertension; J45.909 Unspecified asthma, uncomplicated
CPT/HCPCS: 32555; 36415; 71045; 76604; 77012; 80048; 80053; 82306; 82652; 83735; 83880; 84132; 84484; 85025; 85610; 85730; 93005; 94644; 99285-25; G0378

== ENCOUNTER 2018-01-27 09:25 | Emergency (ER) | payer MEDICARE, OTHER ==
[2018-01-27] MEDS ORDERED: ALBUTEROL 0.083% (NEB) 2.5 MG/3 ML AMP HHN (09:30)
[2018-01-27 10:19] LABS: ADD MAN DIFF? NO
[2018-01-27 10:22] LABS: BASOPHILS % 0.4 % (0.0-2.0); EOSINOPHILS % 1.6 % (0.0-7.0); HEMATOCRIT 38.4 % (37.0-47.0); HEMOGLOBIN 12.5 g/dl (12.0-16.0); MEAN CORPUSCULAR HGB CONC 32.6 g/dl (32.0-37.0); MEAN CORPUSCULAR VOLUME 92.3 fl (82.0-101.0); MEAN PLATELET VOLUME 9.2 fl (7.4-10.4); MONOCYTES % 9.1 % (0.0-11.0); NEUTROPHIL # 4.8 10^3/ul (1.6-7.5); NEUTROPHILS % 71.6 % (39.0-77.0); PLATELET COUNT 159 10^3/UL (140-415); RED BLOOD COUNT 4.16 10^6/ul (4.20-5.40)
[2018-01-27 10:22] LABS: WHITE BLOOD COUNT 6.7 10^3/ul (4.8-10.8)
[2018-01-27 10:23] LABS: EOSINOPHILS # 0.1 10^3/ul (0.0-0.5); LYMPHOCYTES # 1.1 10^3/ul (0.8-2.9); MONOCYTE # 0.6 10^3/ul (0.3-0.9)
[2018-01-27 10:46] LABS: INR 1.06; PROTIME 13.9 Sec (11.9-14.9); PT RATIO 1.1
[2018-01-27 10:47] LABS: PARTIAL THROMBOPLASTIN TIME 32.2 Sec (23.0-35.0)
[2018-01-27 10:53] LABS: ANION GAP 4 (5-13); BLOOD UREA NITROGEN 12 mg/dl (7-20); CALCIUM 8.6 mg/dl (8.4-10.2); CARBON DIOXIDE 28 mmol/L (21-31); CHLORIDE 106 mmol/L (97-110); CREATININE 0.69 mg/dl (0.44-1.00); GLUCOSE 100 mg/dl (70-220); POTASSIUM 4.2 mmol/L (3.5-5.1); SODIUM 138 mmol/L (135-144)
[2018-01-27 11:05] LABS: TROPONIN-I < 0.012 ng/ml (0.000-0.120)
[2018-01-27] MEDS ORDERED: LIDOCAINE 2% (SDV) 5 ML INJ (11:40)
[2018-01-27] MEDS: LIDOCAINE 1% (MPF) 5 ML VIAL SC (13:00)
[2018-01-27] MEDS: DEXTROSE 5%-0.9% NACL 500 ML IV (13:57)
== END 2018-01-27 17:40 | disposition home or self-care (01) ==
LOC: E/R 09:25
DX: J90 Pleural effusion, not elsewhere classified (principal); I10 Essential (primary) hypertension; J45.901 Unspecified asthma with (acute) exacerbation; Z85.118 Personal history of other malignant neoplasm of bronchus and lung
CPT/HCPCS: 36569; 71045; 76937; 76942; 80048; 84484; 85025; 85610; 85730; 99285-25